=== PATIENT | male | born 1950 | race Caucasian/White ===

== ENCOUNTER 2017-10-11 05:36 | Observation (INO) | payer MEDICARE, OTHER ==
[~2017-10-11] VITALS: Ht 182.9 cm; Wt 84.5 kg
[2017-10-11] MEDS ORDERED: SODIUM CHLORID 0.9% 500 ML IV PRN (06:00)
[2017-10-11] MEDS ORDERED: ceFAZolin 2 GM PREMIX 50 ML IV SCH (06:00)
[2017-10-11] MEDS ORDERED: VANCOMYCIN 1000 MG/NS 250 ML (for <70 kg) IV SCH ×2 (06:00)
[2017-10-11] MEDS ORDERED: LACTATED RINGER'S 1000 ML IV PRN (06:00)
[2017-10-11] MEDS ORDERED: CHLORHEXIDINE GLUCONATE 2 % 1 PACK (2 CLOTHS) TOPICAL PRN (06:00)
[2017-10-11] MEDS ORDERED: CHLORHEXIDINE GLUCONATE 4% SOLN 120 ML BTL TOPICAL SCH (06:00)
[2017-10-11] MEDS ORDERED: POVIDONE IODINE 5% (ANTISEPSIS KIT) 4 APPLICATIONS EACH NARE PRN (06:00)
[2017-10-11] MEDS ORDERED: METOPROLOL TARTRATE 25 MG TAB PO PRN (06:00)
[2017-10-11] MEDS ORDERED: CANA100T PO (06:23)
[2017-10-11] MEDS ORDERED: ALOG25TA2 PO (06:23)
[2017-10-11] MEDS ORDERED: HYDR12.57 PO (06:23)
[2017-10-11] MEDS ORDERED: GABA300C5 PO (06:23)
[2017-10-11] MEDS ORDERED: EZET1TAB8 PO (06:23)
[2017-10-11] MEDS ORDERED: GLUCTAB PO (06:23)
[2017-10-11] MEDS ORDERED: FENO160T PO (06:23)
[2017-10-11] MEDS ORDERED: XARE20TA PO (06:23)
[2017-10-11] MEDS ORDERED: GLIP1TAB49 PO (06:23)
[2017-10-11] MEDS ORDERED: DUTA1CAP2 PO (06:23)
[2017-10-11] MEDS ORDERED: GENTAMICIN SULFATE 80 MG/2 ML VIAL ONE (07:21)
[2017-10-11] MEDS ORDERED: CALCTAB19 PO (08:25)
[2017-10-11] MEDS ORDERED: HYDR-3583 PO (08:25)
[2017-10-11] MEDS ORDERED: VITA500012 PO (08:25)
--- NOTE | 2017-10-11 09:09 | PD.OP ---
cc: Butch Mabry MD Operative Report Date of Surgery: Oct 11, 2017 Preoperative Diagnosis: Displaced right distal humerus supracondylar fracture Postoperative Diagnosis: Procedure: Open reduction internal fixation right distal humerus epicondylar fracture with intra-articular split Anesthesia: Gen. Surgeon: Butch Mabry Mill Tender(s): YEISON Parnell PA-C The surgical procedure was assisted by my physician perinatal breastfeeding assistant. My P.A. presence was necessary throughout this case for the manipulation and positioning of the surgical extremity. My P.A. was assisting me throughout the duration of this procedure. The skill set of a physician perinatal breastfeeding assistant was medically necessary to complete this procedure. During the surgical case the surgical resident was working at the back table and the physician perinatal breastfeeding assistant was directly assisting me. Operation and Findings: Implants used : Biomet Plan of activity : Passive range of motion Patient was seen and evaluated preoperatively. Treatment options were discussed regarding right distal humerus fracture including surgical and nonsurgical treatments. After detailed discussion of risk and benefits of procedure patient wishes to proceed with surgery. Risks of surgery include bleeding, infection, nonunion, malunion, painful hardware, loss of motion of shoulder and elbow, weakness and numbness of arm, ulnar nerve injury as well as medical competitions including blood clots, stroke, heart attack, and . Patient was brought to operating room and placed on the OR table. GETA was administered by anesthesiologist. Patient was positioned in lateral decubitus position. Extremities were well-padded. Axillary roll was placed. Operative arm and shoulder were prepped with alcohol followed by Hibiclens and draped usual sterile fashion. Timeout procedure was performed. IV antibiotics were given prior to incision. A standard posterior approach was utilized. Subcutaneous tissues was dissected with Bovie. The lateral border of the triceps was elevated off of the distal humerus. Fracture site was visualized. Next, the ulnar nerve was identified and protected throughout the procedure. The nerve was intact. The fracture was identified along the medial distal humerus. Soft tissue was removed from the fracture site. Fracture site was cleaned with curettes. At this point the fracture was reduced using fracture tenaculums. The lateral column was reduced first. A K wire was used to hold provisional fixation. Next the medial column was reduced. Multiplanar fluoroscopy confirmed excellent of fracture. Biomet distal humerus plates were selected. The medial plate was provisionally held the bone with K wires. 3.5 cortical screws were placed to compress plate to bone. Multiple 3.5 locking screws were placed distally. Care was taken to keep screws from penetrating the articular surface. Multiple screws were placed in each side of the fracture. All screws were predrilled and premeasured for appropriate length. Next the lateral plate was placed along the posterior lateral humerus. Plate was provisionally held to bone with K wires. 3.5 cortical screws were used to compress plate to bone. Additional 3.5 locking screws were placed distally. K wires were removed. Final fluoroscopy revealed excellent alignment of fracture with well-placed hardware. Incision was thoroughly irrigated. Fascia was closed with #1 Vicryl, subcutaneous tissues closed with 3-0 Vicryl, and skin was closed with petar. Sterile dressings were applied. Needle and sponge counts were correct. Patient was placed into a sling, and then transferred to recovery room in stable condition Butch Mabry MD Oct 11, 2017 09:09
[2017-10-11] MEDS ORDERED: MORPHINE SULFATE 4 MG/ML INJ IV PUSH PRN (09:15)
[2017-10-11] MEDS ORDERED: diphenhydrAMINE HCL 25 MG CAP PO PRN (09:15)
[2017-10-11] MEDS ORDERED: ONDANSETRON HCL 4 MG/2 ML VIAL IVP PRN (09:15)
[2017-10-11] MEDS ORDERED: MIDAZOLAM HCL 2 MG/2 ML VIAL ONE (09:33)
[2017-10-11] MEDS ORDERED: ACETAMINOPHEN 1000 MG/100 ML 100 ML IV ONE (09:34)
[2017-10-11] MEDS ORDERED: *morphine SULFATE 4 MG/ML PERIprocedure ONLY ONE (09:36)
--- NOTE | 2017-10-11 09:40 | PD.ORT.PN ---
Subjective Subjective Remarks POD 0 s/p ORIF right distal humerus stable in PACU Objective Vitals Vital Signs Date Time Temp Pulse Resp B/P (MAP) Pulse Ox O2 Delivery O2 Flow Rate FiO2 10/11/17 06:38 97.6 79 18 133/55 (81) 95 I/O 10/10/17 10/10/17 10/10/17 10/11/17 10/11/17 10/11/17 07:00 15:00 23:00 07:00 15:00 23:00 Intake Total 1200 ml Output Total 100 ml Balance 1100 ml Intake IV Total 1200 ml Output Estimated Blood Loss 100 ml Objective Remarks RUE: dressings clean and dry. intact. +sling Assessment & Plan Assessment and Plan 1) Right Distal Humerus Fx s/p ORIF - POD 0 -NWB -daily dressing changes POD 2 -plan for DC home saturday with HHC -pendulums and PROM of elbow -f/u with Neptali or PA in 2 weeks Clement Mejias/Skin Care Technician ASHVIN Oct 11, 2017 09:40
--- NOTE | 2017-10-11 09:41 | HHI.FF ---
Face to Face Verification Diagnosis: (1) Closed fracture of right distal humerus Occupational Therapy Right UE Weight Bearing: Non WB Right UE Range of Motion: Pendular (PROM of elbow and pendular exercises) Nursing Dressing Changes: Daily dressing change, Mack wrap, 4x4s, Xeroform I have seen patient Jaylan Galvan on 10/11/17. My clinical findings support the need for the requested home health care services because: Ltd mobility - disease progression I certify that my clinical findings support that this patient is homebound because: Post-op weakness Clement Mejias/Software Lead PA Oct 11, 2017 09:41
[2017-10-11] MEDS ORDERED: *morphine SULFATE 10 MG/ML PERIprocedure ONLY ONE (09:47)
[2017-10-11] MEDS ORDERED: BUPIVACAINE HCL PF 0.5% 30 ML VIAL ONE ×2 (09:52→10:12)
[2017-10-11] MEDS ORDERED: ERGOCALCIFEROL (VIT D2) 50,000 UNIT CAP PO SCH (10:00)
[2017-10-11] MEDS ORDERED: LIDOCAINE HCL 1% 30 ML VIAL ONE (10:12)
[2017-10-11] MEDS ORDERED: PHENYLEPH/NS 1000 MCG/10 ML SYR IV ONE (12:00)
[2017-10-11] MEDS ORDERED: ONDANSETRON HCL 4 MG/2 ML VIAL IV ONE (12:00)
[2017-10-11] MEDS ORDERED: DEXAMETHASONE SOD PHOS 4 MG/ML VIAL IV ONE (12:00)
[2017-10-11] MEDS ORDERED: GLYCOPYRROLATE 1 MG/5 ML SYRINGE IV PUSH ONE (12:00)
[2017-10-11] MEDS ORDERED: NEOSTIGMINE 5 MG/5 ML SYRINGE IV PUSH ONE (12:00)
[2017-10-11] MEDS ORDERED: PROPOFOL 200 MG/20 ML AMP IV ONE (12:00)
[2017-10-11] MEDS ORDERED: ROCURONIUM INJ 50 MG/5 ML SYRINGE IV PUSH ONE (12:00)
[2017-10-11] MEDS ORDERED: LIDOCAINE HCL 1% PF 5 ML SYRINGE OTHER ONE (12:00)
--- NOTE | 2017-10-11 12:54 | RADRPT ---
EXAM DATE/TIME: 10/11/2017 08:57 [facility] COMPARISON: No previous studies available for comparison. INDICATIONS : Right elbow open reduction internal fixation. MEDICAL HISTORY : None. SURGICAL HISTORY : None. ENCOUNTER: Initial ACUITY: 1 day PAIN SCORE: Non-responsive. LOCATION: Right elbow FINDINGS: 4 spot fluoroscopic images obtained in the operating room during a procedure demonstrates placement o f 2 distal humeral side plates with multiple interlocking screws. No unexpected finding is identified . CONCLUSION: Spot fluoroscopic images obtained during distal right humerus ORIF. Marques Ulrich MD on October 11, 2017 at 12:51 Board Certified Radiologist. This report was verified electronically.
[2017-10-11] MEDS ORDERED: CALCIUM/VITAMIN D 250 MG/125 U TAB PO SCH (13:00)
[2017-10-11 14:00] VITALS: BP 128/58; PULSE 86; RESP 18; TEMP 95.9; O2SAT 95
[2017-10-11] MEDS: ACETAMINOPHEN/HYDROcodone 325 MG/10 MG TAB PO PRN ×3 (15:35→23:46)
[2017-10-11 16:00] VITALS: BP 130/60; PULSE 86; RESP 17; TEMP 96.2; O2SAT 95
[2017-10-11] MEDS ORDERED: PILL SPLITTER OTHER PRN (18:00)
[2017-10-11] MEDS: CEFAZOLIN INJ 2,000 MG in SODIUM CHLORIDE 0.9% INJ 100 ML IV SCH (18:21)
[2017-10-11] MEDS: GABAPENTIN 300 MG CAP PO SCH ×2 (18:21→20:19)
[2017-10-11] MEDS ORDERED: GLUCAGON 1 MG/ML VIAL OTHER PRN (18:30)
[2017-10-11] MEDS ORDERED: DEXTROSE 50% IN WATER 50 ML VIAL(D50) IV PUSH PRN (18:30)
--- NOTE | 2017-10-11 19:02 | EKG ---
Date Performed: 10/11/2017 Time Performed: 06:13:16 PTAGE: 67 years EKG: Sinus rhythm POSSIBLE RIGHT ATRIAL ENLARGEMENT BORDERLINE ECG NO PREVIOUS TRACING DOCTOR: Shin Larson Interpretating Date/Time 10/11/2017 19:01:30
[2017-10-11 19:53] VITALS: O2SAT 95
[2017-10-11 20:00] VITALS: BP 142/65; PULSE 99; RESP 17; TEMP 98.1; O2SAT 97
[2017-10-11] MEDS: DOCUSATE SODIUM 50 MG/SENNA 8.6 MG TAB PO SCH (20:18)
[2017-10-11] MEDS: metFORMIN HCL 500 MG TAB PO SCH (20:18)
[2017-10-11] MEDS: glipiZIDE 5 MG TAB PO SCH (20:19)
[2017-10-11] MEDS: CALCIUM/VITAMIN D 250 MG/125 U TAB PO SCH (20:20)
[2017-10-11] MEDS: LOW DOSE INSULIN NOVOLOG SUPPLEMENTAL SCALE SQ SCH (20:23)
[2017-10-12] VITALS: BP 153/68; PULSE 90; RESP 20; TEMP 98.1; O2SAT 97
[2017-10-12] MEDS: ACETAMINOPHEN/HYDROcodone 325 MG/10 MG TAB PO PRN ×4 (02:58→11:56)
[2017-10-12 04:00] VITALS: BP 162/71; PULSE 83; RESP 16; TEMP 96; O2SAT 95
[2017-10-12 07:46] VITALS: BP 140/63; PULSE 68; RESP 18; TEMP 96.4; O2SAT 95
[2017-10-12] MEDS: LOW DOSE INSULIN NOVOLOG SUPPLEMENTAL SCALE SQ SCH (08:00)
[2017-10-12] MEDS ORDERED: RIVAROXABAN 20 MG TAB PO SCH (09:00)
[2017-10-12] MEDS ORDERED: FENOFIBRATE 145 MG TAB PO SCH (09:00)
[2017-10-12] MEDS ORDERED: [UNRECOGNIZED DRUG - OTHER] PO SCH (09:00)
[2017-10-12] MEDS ORDERED: CHOLECALCIFEROL (VIT D3) 1000 UNIT TAB PO SCH (09:00)
[2017-10-12] MEDS ORDERED: PIOGLITAZONE PO SCH (09:00)
[2017-10-12] MEDS ORDERED: EZETIMIBE 10 MG TAB PO SCH (09:00)
[2017-10-12] MEDS ORDERED: HYDROCHLOROTHIAZIDE 12.5 MG CAP PO SCH (09:00)
[2017-10-12] MEDS ORDERED: ALOGLIPTIN PO SCH (09:00)
[2017-10-12] MEDS ORDERED: FINASTERIDE 5 MG TAB PO SCH (09:00)
[2017-10-12] MEDS: DOCUSATE SODIUM 50 MG/SENNA 8.6 MG TAB PO SCH (09:01)
[2017-10-12] MEDS: CEFAZOLIN INJ 2,000 MG in SODIUM CHLORIDE 0.9% INJ 100 ML IV SCH ×3 (09:01)
[2017-10-12] MEDS: metFORMIN HCL 500 MG TAB PO SCH (09:02)
[2017-10-12] MEDS: GABAPENTIN 300 MG CAP PO SCH ×2 (09:02→11:55)
[2017-10-12] MEDS: glipiZIDE 5 MG TAB PO SCH (09:02)
[2017-10-12] MEDS: CALCIUM/VITAMIN D 250 MG/125 U TAB PO SCH (09:03)
--- NOTE | 2017-10-12 09:55 | PD.ORT.PN ---
Subjective Post Op Day #: 1 Subjective Remarks Patient sitting on side of bed with c/o moderate pain to the left elbow since his nerve block wore off. Objective Vitals Vital Signs Date Time Temp Pulse Resp B/P (MAP) Pulse Ox O2 Delivery O2 Flow Rate FiO2 10/12/17 07:46 96.4 68 18 140/63 (88) 95 10/12/17 04:00 96.0 83 16 162/71 (101) 95 10/12/17 00:00 98.1 90 20 153/68 (96) 97 10/11/17 20:00 98.1 99 17 142/65 (90) 97 10/11/17 19:53 95 21 10/11/17 16:00 96.2 86 17 130/60 (83) 95 10/11/17 14:00 95.9 86 18 128/58 (81) 95 10/11/17 13:30 97.7 90 20 143/65 (91) 96 Nasal Cannula 2 10/11/17 12:30 90 20 143/65 (91) 96 Nasal Cannula 2 10/11/17 11:30 88 20 132/60 (84) 96 Nasal Cannula 2 10/11/17 10:30 90 20 130/57 (81) 92 Nasal Cannula 2 10/11/17 10:15 90 20 148/65 (92) 94 Nasal Cannula 2 10/11/17 10:00 90 22 164/75 (104) 92 Nasal Cannula 2 I/O 10/11/1718 10/11/17 218 18 10/12/17 07:00 15:00 23:00 07:00 15:00 23:00 Intake Total 1200 ml 480 ml 480 ml 120 ml Output Total 100 ml Balance 1100 ml 480 ml 480 ml 120 ml Intake Oral 480 ml 480 ml IV Total 1200 ml 120 ml Output Estimated Blood Loss 100 ml # Voids 5 2 Objective Remarks RUE: dressings clean and dry. dressings intact. +sling. + NVI. + SILT x 5. Assessment & Plan Ortho Post Op Day #: 1 Problem List: Assessment and Plan 1) Right Distal Humerus Fx s/p ORIF - POD 1 -NWB -daily dressing changes POD 2 -stable for DC home today with HHC -pendulums and PROM of elbow -f/u with Neptali or PA in 2 weeks Renato Garcia Oct 12, 2017 09:55
== END 2017-10-12 12:17 | disposition home or self-care (01) ==
LOC: HSDC 05:36 → HSDI 09:06 → N06B 14:06
PROVIDERS: ADMIT Orthopaedic Surgery Orthopaedic Trauma; ATTEND Orthopaedic Surgery Orthopaedic Trauma
DX: S42.411A Displaced simple supracondylar fracture without intercondylar fracture of right humerus, initial encounter for closed fracture (principal); I10 Essential (primary) hypertension; W01.0XXA Fall on same level from slipping, tripping and stumbling without subsequent striking against object, initial encounter; Y93.89 Activity, other specified; Y92.002 Bathroom of unspecified non-institutional (private) residence as the place of occurrence of the external cause
CPT/HCPCS: 01740; 24575; 73070; 76000; 86850; 86900; 86901; 93005; 96365; 96366; 97110; 97167; 97530; C1713; G0378; G8987; G8988; J0131; J0690; J1100; J1580; J2250; J2270; J2370; J2405; J2710; J3010; J3370; J7050; J7120